=== PATIENT | male | born 1965 | race Two or more races ===

== ENCOUNTER → 2024-09-25 | Outpatient (CLI) | payer MEDICAID, SELFPAY ==
--- NOTE | 2024-09-25 15:00 | XR_ITS ---
Examination: Abdomen sonogram, complete Date and time of exam: September 25, 2024 1431 hours INDICATIONS: Right upper abdominal pain beginning several weeks ago. Technique: Multiple real-time grayscale transabdominal sonographic images of the abdomen have been obtained. Findings: Normal gallbladder Normal common bile duct 0.4 cm Pancreas obscured by bowel gas Aorta not enlarged Liver 11.9 cm with multiple liver cysts, the largest 26 mm x 29 mm Hyperechoic right lobe liver lesion 13 x 11 mm probable hemangioma Normal hepatopedal portal venous flow Patent IVC Right kidney 10.7 cm cortex 1.4 cm Technologist describes small calculi lower pole left kidney in height. 11 mm Left kidney 10.6 cm in the cortex 3.2 cm Multiple left renal cysts including upper pole 24 mm lower pole 22 mm midpole 51 mm Spleen 9.1 cm IMPRESSION: Normal gallbladder Benign liver cysts Benign left renal cyst Multiple small lower pole left renal calculi, no hydronephrosis Recommend 6 month follow-up liver sonography to confirm benign hemangioma right lobe liver
== END | disposition home or self-care (01) ==
PROVIDERS: PCP Physician Assistant; Referring Provider Internal Medicine Gastroenterology; Visit Provider Internal Medicine Gastroenterology
DX: K76.89 Other specified diseases of liver (principal); N28.1 Cyst of kidney, acquired; N20.0 Calculus of kidney
CPT/HCPCS: 76700